=== PATIENT | male | born 1960 | race Caucasian/White ===

== ENCOUNTER 2023-07-31 09:24 | Emergency (ER) | payer MEDICAID, OTHER ==
[2023-07-31] MEDS ORDERED: Lidocaine 1% 5 ML VIAL INJECT ONE (09:48)
[2023-07-31] MEDS ORDERED: Bacitracin Oint 1 GM U/D Packet TOP ONE (09:48)
[2023-07-31] MEDS ORDERED: Diphtheria,Pertussis(Acell),Tetanus Vaccine 0.5 ML Syringe IM ONE (09:48)
== END 2023-07-31 11:10 | disposition home or self-care (01) ==
LOC: JP.ED 09:24
DX: S61.217A Laceration without foreign body of left little finger without damage to nail, initial encounter (principal); S66.309A Unspecified injury of extensor muscle, fascia and tendon of unspecified finger at wrist and hand level, initial encounter; I10 Essential (primary) hypertension; I25.2 Old myocardial infarction; Z95.5 Presence of coronary angioplasty implant and graft; Z23 Encounter for immunization; W25.XXXA Contact with sharp glass, initial encounter
CPT/HCPCS: 12001; 90471; 90715; 99282-25